=== PATIENT | female | born 1995 | race Caucasian/White ===

== ENCOUNTER 2020-01-27 20:20 | Emergency (ER) | payer MEDICAID ==
[~2020-01-27] VITALS: Ht 165.1 cm; Wt 85.7 kg
[2020-01-27 20:20] VITALS: BP 143/74
--- NOTE | 2020-01-27 20:40 | NUR ---
PT COMPLETE ASSESSMNET COMPLETED BY TEOFILO , NO NURSING INTERVENTIONS NEEDED AT THIS TIME.
[2020-01-27 20:42] VITALS: BP 143/74
--- NOTE | 2020-01-27 20:42 | NUR ---
Patient discharged with v/s stable. Written and verbal after care instructions given and explained. Patient verbalized understanding. Police with in custody. All questions addressed prior to discharge. Advised to follow up with PMD.
== END 2020-01-27 20:42 ==
LOC: MED 20:20
DX: O26.892 Other specified pregnancy related conditions, second trimester (principal); J45.909 Unspecified asthma, uncomplicated; Z02.89 Encounter for other administrative examinations; Z3A.01 Less than 8 weeks gestation of pregnancy; Z98.890 Other specified postprocedural states
CPT/HCPCS: 99283; 99284